=== PATIENT | male | born 1935 | race Caucasian/White ===

== ENCOUNTER 2017-01-28 13:35 | Inpatient (IN) | payer OTHER ==
[~2017-01-28] VITALS: Ht 167.6 cm; Wt 70.3 kg
--- NOTE | ~2017-01-28 | EKG ---
[address] [address] ELECTROCARDIOGRAM REPORT Name: FILOMENA PEREZ Room #: 364-P ADM IN M.R.#: [id number] Admission: 01/28/17 Attend Phys: Andres Liz Discharge: Date of : 31 Report #: [id number] THIS REPORT FOR: //name// [facility] ED Test Date: 2017-01-28 Test Time: 14:22:23 Pat Name: FILOMENA PEREZ Department: Room: 364 Gender: M [employer] H[employer] Instructor: ERASMO : 1935 Requested By: Daniele Peng Order Number: [id number] MD: Aravind Meier Measurements Intervals [place] Rate: 95 P: MT: QRS: 23 QRSD: 141 T: 29 QT: 380 QTc: 478 Interpretive Statements Sinus rhythm with first degree AV block Right bundle branch block Baseline wander in lead(s) II,III,aVF,V1,V2 Electronically Signed On 01-28-2017 20:17:47 AEROLOGIST by Aravind Meier [email or web address] <ELECTRONICALLY SIGNED> By: Aravind Meier MD 01/28/172016 142 142 Aravind Meier MD /MACEY
[2017-01-28 13:35] VITALS: BP 155/81
[~2017-01-28 13:35] MED LIST: ACCUNEB SO1.25 MG/1 INH; ADVAIR 500-501 EACH INH; ADVAIR HFA 230M12 GM INH; AMBIEN 5 MG TABL5 M1 PO; AMITRIPTYLINE H25 M2 PO; AMOXICILLIN 50500 MG PO; AMOXICILLIN500 M1 PO; ASPIRIN EC81 M1 PO; AUGMENTIN 875875 MG PO; CALCIUM 500 +1 EAC5 PO; CARTIA XT300 M1 PO; CENTRUM SILVER1 EAC4 PO; CIPRO500 MG PO; CIPROFLOXACIN500 M3 PO; COZAAR 50 MG TA50 M1; COZAAR 50 MG TA50 M2 PO; COZAAR100 MG PO; DALIRESP500 MCG PO; DEEP SEA NASAL44 M1 NS; DIAZEPAM 2MG TAB2 MG PO; DICLOFENAC SOD50 MG; DILTIAZEM 24HR180 MG PO; DUONEB 2.5-0.5 M3 ML INH; ENDOCET 5-3251 EACH PO; FAMVIR500 MG; FISH OIL 1,0001 EAC5 PO; FISH OIL 1,001000 M2 PO; FUROSEMIDE 40 M40 M1 PO; HYDROCODON-ACE1 EAC7 PO; IPRAT-ALBUT 0.5-3 ML INH; KLOR-CON 1010 MEQ; KLOR-CON 1010 MEQ PO; LAXATIVE PEG 3317 GM PO; LEVAQUIN 500 M500 M4 PO; LEXAPRO 10 MG T10 M1 PO; LEXAPRO 10 MG T10 MG; LIPITOR 40 MG T40 M1 PO; LOVENOX40 MG/0.4 SQ; MUCINEX TA600 MG/TAB PO; NORCO 5-325 TA1 EACH PO; OMEPRAZOLE 20 M20 MG; PERCOCET 7.5-31 EAC1 PO; PREDNISONE 10 M10 M1 PO; PREDNISONE 10 M10 MG; PREDNISONE 10 M10 MG PO; PREDNISONE 20 M20 M1 PO; PREDNISONE 20 M20 MG PO; PRILOSEC20 MG PO; PROAIR HFA8.5 GM INH; PROAIR RESPICL90 MCG IH; PROTONIX40 M1 PO; PROTONIX40 M2 PO; REFRESH CLASSI1 EACH OP; REGLAN 10 MG TA10 MG PO; RESTASIS1 EACH OPHTHALMIC; SIMETHICON CHEW80 M1 PO; SYNTHROID125 MCG PO; TAMSULOSIN HCL0.4 MG PO; TEARS NATURALE1 EACH OPHTHALMIC; TYLENOL325 MG PO; VITAMIN D3400 UNI1 PO; VYTORIN 10-401 EACH PO; XOPENEX 0.63 MG/3 M1 INH; XOPENEX 1.25 MG/3 ML INH; cartia xt
[2017-01-28 14:24] LABS: HEMATOCRIT 41.5 % (42.0-52.0); HEMOGLOBIN 13.9 gm/dL (14.0-18.0); MANUAL DIFF YES; MCH 30.2 pg (26.0-34.0); MCHC 33.5 g/dL (28.0-37.0); MCV 90.2 fL (80.0-100.0); PLATELET COUNT 225 thou/uL (150-400); RDW 14.6 % (10.5-14.5); WBC 10.2 thou/uL (4.0-11.0)
[2017-01-28 14:28] LABS: ANION GAP 8 mmol/L (7-16); BUN 13 mg/dL (7-18); CALCIUM 8.7 mg/dL (8.5-10.1); CHLORIDE 103 mmol/L (98-107); CO2 25 mmol/L (21-32); CREATININE 0.9 mg/dL (0.7-1.3); GLUCOSE 102 mg/dL (74-106); POTASSIUM 4.1 mmol/L (3.5-5.1); SODIUM 136 mmol/L (136-145)
[2017-01-28 14:37] LABS: TROPONIN-I < 0.04 ng/mL (<0.06)
[2017-01-28 14:44] LABS: ABSOLUTE NEUTROPHILS 8.5 thou/uL (1.4-8.2); TOTAL CELL COUNT 100
[2017-01-28 14:45] LABS: PLATELET ESTIMATE NORMAL
[2017-01-28 15:46] LABS: URINE BILIRUBIN NEGATIVE (Negative); URINE BLOOD TRACE (Negative); URINE COLOR YELLOW; URINE GLUCOSE-RANDOM* NEGATIVE (Negative); URINE KETONES NEGATIVE (Negative); URINE LEUKOCYTES-REFLEX NEGATIVE (Negative); URINE PROTEIN (DIPSTICK) NEGATIVE (Negative); URINE SPECIFIC GRAVITY 1.015 (1.003-1.035); URINE UROBILINOGEN 0.2 E.U./dl (0.2-1.0)
[2017-01-28 16:37] VITALS: BP 132/70
[2017-01-28 17:00] VITALS: BP 144/72
[2017-01-28 19:16] VITALS: BP 118/73
[2017-01-29 03:52] VITALS: BP 125/71
[2017-01-29 08:52] VITALS: BP 139/66
[2017-01-29 14:12] VITALS: BP 139/66
[2017-01-29 15:08] VITALS: BP 145/76
[2017-01-29 15:15] VITALS: BP 139/66
[2017-01-29 20:00] VITALS: BP 143/56
[2017-01-30 04:00] VITALS: BP 139/76
[2017-01-30 08:00] VITALS: BP 149/86
[2017-01-30 12:23] VITALS: BP 143/74
[2017-01-30 15:43] VITALS: BP 134/57
[2017-01-30 20:00] VITALS: BP 129/69
[2017-01-31 04:00] VITALS: BP 140/84
[2017-01-31 08:01] VITALS: BP 129/53
[2017-01-31] MEDS ORDERED: PREDNISONE 10 M10 MG PO (09:24)
[2017-01-31] MEDS ORDERED: LEVAQUIN 750 M750 MG PO (09:25)
[2017-01-31 09:36] VITALS: BP 139/66
[2017-01-31 10:10] VITALS: BP 139/66
[2017-01-31 10:47] VITALS: BP 139/66
== END 2017-01-31 10:55 | disposition home health service (06) | DRG 871 ==
LOC: ER 13:35 → 3W 16:27 → EROBS 16:27 → 3W 17:36 → ENTRNSPT 01-31 10:39 → 3W 01-31 10:55
PROVIDERS: Emergency Medicine
DX: A41.9 Sepsis, unspecified organism (principal); J18.9 Pneumonia, unspecified organism; E43 Unspecified severe protein-calorie malnutrition; J44.0 Chronic obstructive pulmonary disease with (acute) lower respiratory infection; J44.1 Chronic obstructive pulmonary disease with (acute) exacerbation; J20.9 Acute bronchitis, unspecified; I10 Essential (primary) hypertension; Z88.1 Allergy status to other antibiotic agents; Z88.2 Allergy status to sulfonamides; Z87.891 Personal history of nicotine dependence
CPT/HCPCS: 10080

== ENCOUNTER 2017-02-15 11:29 | Inpatient (IN) | payer OTHER ==
[~2017-02-15] VITALS: Ht 160 cm; Wt 72.6 kg
--- NOTE | ~2017-02-15 | EKG ---
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 02/15/17 1559 1219 1219 Dre Martínez MD, FAC /EPI
[~2017-02-15 11:29] MED LIST changes: +LEVAQUIN 750 M750 MG PO
[2017-02-15 11:30] VITALS: BP 145/80
[2017-02-15 12:45] LABS: ABG SAMPLE TYPE ARTERIAL; HCO3 23.3 mmol/L (22.0-26.0); LACTATE 1.39 mmol/L (0.5-2.0); O2(CT) 20.7 mL/dL (15.0-23.0); O2Hb 92.1 % (92.0-98.0); PCO2 28.1 mmHg (35.0-45.0); PO2 61.8 mmHg (80.0-100.0); pH 7.536 (7.360-7.450); sO2 94.4 % (92.0-98.0); tCO2 24.1 mmol/L (24.0-30.0)
[2017-02-15 12:46] LABS: STICK SITE R.RADIAL
[2017-02-15 12:57] LABS: ABSOLUTE NEUTROPHILS 15.5 thou/uL (1.4-8.2); BASOPHILS 0.2 % (0.0-2.0); EOSINOPHILS 0.5 % (0.0-3.0); HEMATOCRIT 46.8 % (42.0-52.0); HEMOGLOBIN 15.6 gm/dL (14.0-18.0); LYMPHOCYTES 7.3 % (24.0-44.0); MCH 30.4 pg (26.0-34.0); MCHC 33.3 g/dL (28.0-37.0); MCV 91.3 fL (80.0-100.0); MONOCYTES 5.6 % (1.0-8.0); PLATELET COUNT 304 thou/uL (150-400); POLYS 86.4 % (36.0-66.0); RBC 5.13 mil/uL (4.50-6.00); RDW 15.1 % (10.5-14.5)
[2017-02-15 12:59] LABS: MANUAL DIFF NO
[2017-02-15 13:09] LABS: ANION GAP 8 mmol/L (7-16); BUN 23 mg/dL (7-18); CALCIUM 8.7 mg/dL (8.5-10.1); CHLORIDE 104 mmol/L (98-107); CO2 27 mmol/L (21-32); GLUCOSE 103 mg/dL (74-106); POTASSIUM 4.2 mmol/L (3.5-5.1); SODIUM 139 mmol/L (136-145)
[2017-02-15 13:18] LABS: ALBUMIN 2.6 g/dL (3.4-5.0); ALKALINE PHOSPHATASE 87 U/L (46-116); SGOT 20 U/L (15-37); SGPT 25 U/L (30-65); TOTAL BILIRUBIN 0.9 mg/dL (<0.1-1.0); TOTAL PROTEIN 6.6 g/dL (6.4-8.2); TROPONIN-I < 0.04 ng/mL (<0.06)
[2017-02-15 13:48] VITALS: BP 145/80
[2017-02-15 14:30] VITALS: BP 125/73
[2017-02-15 19:58] VITALS: BP 103/60
[2017-02-16 00:15] VITALS: BP 147/81
[2017-02-16 03:52] VITALS: BP 127/71
[2017-02-16 06:57] LABS: ALBUMIN 2.3 g/dL (3.4-5.0); CALCIUM 8.2 mg/dL (8.5-10.1); CREATININE 0.7 mg/dL (0.7-1.3); PHOSPHORUS 3.7 mg/dL (2.5-4.9); POTASSIUM 4.7 mmol/L (3.5-5.1)
[2017-02-16 07:35] LABS: HEMATOCRIT 41.8 % (42.0-52.0); HEMOGLOBIN 14.1 gm/dL (14.0-18.0); MCH 30.6 pg (26.0-34.0); MCHC 33.8 g/dL (28.0-37.0); MCV 90.6 fL (80.0-100.0); RBC 4.61 mil/uL (4.50-6.00); RDW 14.6 % (10.5-14.5); WBC 8.7 thou/uL (4.0-11.0)
[2017-02-16 08:00] VITALS: BP 162/125
[2017-02-16 16:00] VITALS: BP 109/56
[2017-02-16 21:00] VITALS: BP 107/60
[2017-02-17 04:30] VITALS: BP 121/74
[2017-02-17 08:16] VITALS: BP 134/82
[2017-02-17 16:00] VITALS: BP 137/80
[2017-02-17 20:13] VITALS: BP 127/65
[2017-02-18 03:46] VITALS: BP 138/84
[2017-02-18 08:00] VITALS: BP 149/70
[2017-02-18 16:00] VITALS: BP 184/94
[2017-02-18 20:00] VITALS: BP 175/88
[2017-02-18 20:25] VITALS: BP 175/88
[2017-02-19 04:06] VITALS: BP 178/86
[2017-02-19 04:16] VITALS: BP 133/74
[2017-02-19 08:00] VITALS: BP 125/78
[2017-02-19] MEDS ORDERED: CEFUROXIME500 MG PO (09:59)
[2017-02-19] MEDS ORDERED: PREDNISONE 10 M10 MG PO (10:02)
[2017-02-19 20:12] VITALS: BP 137/72
[2017-02-20 03:54] VITALS: BP 128/81
[2017-02-20 08:40] VITALS: BP 122/73
== END 2017-02-20 15:35 | DRG 177 ==
LOC: ER 11:29 → EROBS 13:14 → 4E 13:14
PROVIDERS: Hospitalist; Physician Assistant
DX: J69.0 Pneumonitis due to inhalation of food and vomit (principal); G93.40 Encephalopathy, unspecified; J96.91 Respiratory failure, unspecified with hypoxia; J44.1 Chronic obstructive pulmonary disease with (acute) exacerbation; R13.10 Dysphagia, unspecified; F32.9 Major depressive disorder, single episode, unspecified; J15.9 Unspecified bacterial pneumonia; Y95 Nosocomial condition; Z87.891 Personal history of nicotine dependence; Z88.1 Allergy status to other antibiotic agents; Z88.2 Allergy status to sulfonamides; Z90.49 Acquired absence of other specified parts of digestive tract; Z79.82 Long term (current) use of aspirin; Z79.899 Other long term (current) drug therapy; Z99.81 Dependence on supplemental oxygen
CPT/HCPCS: 10183

== ENCOUNTER 2017-03-01 11:00 | Inpatient (IN) | payer OTHER ==
[~2017-03-01] VITALS: Ht 167.6 cm; Wt 73.4 kg
--- NOTE | ~2017-03-01 | HC ---
[facility] [place] [address] CONSULTATION Name: FILOMENA PEREZ Room #: 204-P [facility] IN M.R.#: [id number] Admission: 03/01/17 Attend Phys: Wilman Fischer MD Discharge: 03/07/17 Date of : 31 Report #: [id number] THIS REPORT FOR: //name// CC: Wilman Dias [facility] [place] DATE OF SERVICE: 03/05/2017 HISTORY OF PRESENT ILLNESS: The patient is an 82-year-old white male who was admitted with shortness of breath, noted to have pneumonia with COPD exacerbation. He is being followed by Pulmonary Medicine with a diagnosis of recurrent pneumonia. He has had acute on chronic hypoxic respiratory failure. Speech therapy is involved and he is on nectar thickened liquids with mechanical soft with his dysphagia. We are seeing him in rehabilitation medicine consultation. PAST MEDICAL HISTORY: Asthma, cholecystectomy, O2 dependent on 2 liters nasal prong premorbidly. PAST SURGICAL HISTORY: As noted above. MEDICATIONS: Please see the full medication listing. ALLERGIES: SULFA, AMOXICILLIN. SOCIAL HISTORY: He has been living in his own independent living apartment using a cane on occasion on 2 liters nasal prong O2. He recently moved into an assisted living facility for a short time and then ended up being readmitted back to the hospital. REVIEW OF SYSTEMS: No current complaints of chest pain, shortness of breath, abdominal discomfort. Denied any focal extremity pain complaints. Did not offer any complaints of headache or shortness of breath or bowel or bladder changes. PHYSICAL EXAMINATION: GENERAL: An 82-year-old white male in no obvious distress. He is alert. VITAL SIGNS: Last recorded temperature is 97.7, pulse 86, respirations 18, blood pressure 130/58. HEENT: Appeared to be benign. NEUROLOGIC: Cranial nerves are grossly intact. Facies are symmetric. He has nasal prong O2 in place. Functional range of motion of both upper extremities with strength grade 4-/5 to 4/5. DTRs are trace to 1. Lower extremities, no focal calf swelling; functional range of motion with strength grade 4 to 4-/5. DTRs are trace to 1. He is mid assist with cyq-sv-[id number] transfers and is ambulating 120 feet min assist with a cane. He is on 4 liters nasal prong O2. [address] [address] CONSULTATION Name: FILOMENA PEREZ Room #: 204-P [facility] IN [facility].#: [id number] Admission: 03/01/17 Attend Phys: Wilman Fischer MD Discharge: 03/07/17 Date of : 31 Report #: [id number] ASSESSMENT: An 82-year-old white male with the following problem list: 1. Pulmonary rehabilitation. 2. Recurrent pneumonia. 3. Acute on chronic hypoxemic respiratory failure. 4. Chronic obstructive pulmonary disease with exacerbation. 5. Dysphagia, currently on nectar thickened liquids. PLAN: Therapy evaluations are continuing. Insurance will need to be checked regarding rehab therapy options. Thank you for asking us to assist in this patient's care. <ELECTRONICALLY SIGNED> By: Malcolm Musa MD 03/10/17 1509 1151 2134 Malcolm Musa MD /[facility]
--- NOTE | ~2017-03-01 | EKG ---
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: Bella HOPKINS : 1935 Requested By: Wilman Fischer Order Number: [id number] MD: Dre Martínez Measurements Intervals [place] Rate: 129 P: -23 [place]: 138 QRS: 31 QRSD: 120 T: 54 QT: 327 QTc: 480 Interpretive Statements Sinus tachycardia Right bundle branch block Baseline wander in lead(s) V6 Compared to ECG 02/15/2017 12:19:28 no significant change was found Electronically Signed On 03-02-2017 14:20:09 MECHANICAL PROJECT MANAGER by Dre Martínez [email or web address] <ELECTRONICALLY SIGNED> By: Dre Martínez MD, [facility] 03/02/17 1420 111 13 Dre Martínez MD, [facility] /EPI
--- NOTE | ~2017-03-01 | EKG ---
[address] [place] [address] ELECTROCARDIOGRAM REPORT Name: FILOMENA PEREZ Room #: 204-P ADM IN M.R.#: [id number] Admission: 03/01/17 Attend Phys: Wilman Fischer MD Discharge: Date of : 31 Report #: [id number] THIS REPORT FOR: //name// [facility] ED Test Date: 2017-03-01 Test Time: 11:07:09 Pat Name: FILOMENA PEREZ Department: Room: [facility] Gender: Shanker Out: Bella HOPKINS : 1935 Requested By: Jerry Schulte Order Number: [id number] MD: Dre Martínez Measurements Intervals [place] Rate: 118 P: 51 ME: 168 QRS: 37 QRSD: 123 T: 29 QT: 304 QTc: 427 Interpretive Statements Sinus tachycardia Left atrial enlargement Right bundle branch block Baseline wander in lead(s) V3,V4,V5,V6 Compared to ECG 02/15/2017 12:19:28 No significant change was found Electronically Signed On 03-02-2017 14:19:24 ELECTRICAL LINEWORKER by Dre Martínez [email or web address] <ELECTRONICALLY SIGNED> By: Dre Martínez MD, FAC 03/02/17 1419 1107 1107 Dre Martínez MD, [facility] /EPI
--- NOTE | ~2017-03-01 | HC ---
[facility] [place] [address] CONSULTATION Name: FILOMENA PEREZ Room #: 204-P [facility] IN M.R.#: [id number] Admission: 03/01/17 Attend Phys: Wilman Fischer MD Discharge: 03/07/17 Date of : 31 Report #: [id number] THIS REPORT FOR: //name// [facility] DATE OF SERVICE: 03/01/2017 PULMONARY CONSULTATION REFERRING PROVIDER: Wilman Fischer MD REASON FOR CONSULTATION: Pneumonia and respiratory failure. HISTORY OF PRESENT ILLNESS: Our group was asked to see the patient in consultation while hospitalized at [facility], a pleasant 82-year-old male with a past pulmonary history significant for underlying COPD with asthmatic component and bronchiectasis, fact was just recently hospitalized less than 2 weeks ago for similar complaints. The patient was discharged and subsequently re-presented to the Emergency Department with increasing shortness of breath, has had some cough and difficulty clearing sputum, also may be having some fever at home at 101.3. He is chronically on supplemental oxygen at home at 2 liters nasal cannula. Denies any muscular pain, chills or sweats. No hemoptysis. On presenting to the Emergency Room, was found to be in respiratory distress, placed on BiPAP without difficulty getting good oxygenation. Chest x-ray revealed diffuse infiltrates being somewhat more prominent than most recent x-ray. ALLERGIES: INCLUDE SULFA AND AMOXICILLIN. PAST MEDICAL HISTORY: 1. Bronchiectasis. 2. COPD. 3. Chronic hypoxemic respiratory failure. 4. Esophageal reflux. 5. Probable depression. OUTPATIENT MEDICATIONS: Include: 1. Advair 230/21 two puffs twice daily. 2. Restasis eyedrops. 3. Lipitor. 4. DuoNeb. 5. Daliresp 500 mcg daily. 6. Aspirin 81 mg daily. 7. Lexapro 10 mg daily. 8. Protonix [address] [facility] [address] [place] [address] CONSULTATION Name: FILOMENA PEREZ Room #: 204-P [facility] IN [facility].#: [id number] Admission: 03/01/17 Attend Phys: Wilman Fischer MD Discharge: 03/07/17 Date of : 31 Report #: [id number] 9. Reglan 5 mg q.a.c. and at bedtime. 10. Albuterol inhaler. 11. Levalbuterol nebulized treatments. 12. Amitriptyline 25 mg daily. 13. [place] p.r.n. 14. Synthroid 0.125 daily. SOCIAL HISTORY: Never smoker, no alcohol consumption. FAMILY HISTORY: Noncontributory due to advanced age. REVIEW OF SYSTEMS: Difficult to obtain due to some mild altered mental status, but is reasonably reliable. CONSTITUTIONAL: No fevers, no chills or rigors. ENT: No upper respiratory congestion or dysphagia. GASTROINTESTINAL: No nausea, vomiting, abdominal pain or diarrhea. GENITOURINARY: No dysuria, no frequency, no hematuria. INTEGUMENT: Denies any rash. MUSCULOSKELETAL: Generalized weakness. No joint pains or swelling. PHYSICAL EXAMINATION: VITAL SIGNS: Temperature 37.0, pulse 70s, respiratory rate 16, blood pressure 115/64. GENERAL: This is a pleasant elderly male, resting comfortably in bed, in no distress, on nasal cannula O2. HEENT: Clear oropharynx. No thrush. NECK: Supple, no lymphadenopathy. LUNGS: Diffuse inspiratory crackles, occasional wheezes. CARDIOVASCULAR: Heart is regular. No murmurs noted. ABDOMEN: Soft, nontender, no masses. EXTREMITIES: Warm, 2+ pulses, no edema. INTEGUMENT: No rash noted. LABORATORY DATA: White blood cell count 12,000; hemoglobin 13; hematocrit 38; platelet count of 321. Chemistry profile within normal limits. ProBNP slightly elevated at 1564. Initial arterial blood gas on BiPAP of 16/6, respiratory rate of 10, at 100% FiO2 revealed pH 7.46, pCO2 of 31, pO2 of 498 and bicarb 21. IMPRESSION: 1. Diffuse pulmonary infiltrates failing recent outpatient management. 2. Chronic obstructive pulmonary disease with acute exacerbation. 3. Underlying bronchiectasis. 4. Acute on chronic hypoxemic respiratory failure. SUGGESTIONS: 1. Continue his steroids with taper. [address] [address] CONSULTATION Name: FILOMENA PEREZ Room #: 204-P [facility] IN M.R.#: [id number] Admission: 03/01/17 Attend Phys: Wilman Fischer MD Discharge: 03/07/17 Date of : 31 Report #: [id number] 2. Broaden antibiotics while awaiting cultures given recent antibiotics and failure of treatment. 3. Influenza screen. Respiratory viral panel. Sputum and blood cultures. 4. Follow up chest radiograph. 5. Frequent bronchodilators. We would be concerned about the patient's decompensating mental status while on Levaquin and systemic steroids as he has been intolerant to some of these medications in the past and when in combination, we will have to observe carefully and de-escalate antibiotics as soon as able. Discussed at length with the patient. <ELECTRONICALLY SIGNED> By: Ernesto Weller MD 03/07/17 1726 1659 0519 Ernesto Weller MD /nt
[~2017-03-01 11:00] MED LIST changes: +CEFUROXIME500 MG PO
[2017-03-01 11:01] VITALS: BP 118/72
[2017-03-01 11:29] LABS: HEMATOCRIT 41.5 % (42.0-52.0); HEMOGLOBIN 13.9 gm/dL (14.0-18.0); MCH 30.4 pg (26.0-34.0); MCHC 33.6 g/dL (28.0-37.0); MCV 90.6 fL (80.0-100.0); PLATELET COUNT 321 thou/uL (150-400); RBC 4.58 mil/uL (4.50-6.00); RDW 14.4 % (10.5-14.5); WBC 15.3 thou/uL (4.0-11.0)
[2017-03-01 11:33] LABS: ANION GAP 9 mmol/L (7-16); BUN 10 mg/dL (7-18); CALCIUM 8.7 mg/dL (8.5-10.1); CHLORIDE 104 mmol/L (98-107); CO2 24 mmol/L (21-32); CREATININE 0.8 mg/dL (0.7-1.3); GLUCOSE 115 mg/dL (74-106); SODIUM 137 mmol/L (136-145)
[2017-03-01 11:42] LABS: TROPONIN-I < 0.04 ng/mL (<0.06)
[2017-03-01 12:12] LABS: BE(vivo) -1.5 mmol/L (-2 to +3); HCO3 21.4 mmol/L (22.0-26.0); PCO2 31.1 mmHg (35.0-45.0); PO2 497.5 mmHg (80.0-100.0); pH 7.456 (7.360-7.450); sO2 99.9 % (92.0-98.0)
[2017-03-01 12:20] LABS: ABSOLUTE NEUTROPHILS 12.1 thou/uL (1.4-8.2); ANISOCYTOSIS SLIGHT; ATYPICAL LYMPHS 1 %; METAMYELOCYTES 1 %
[2017-03-01 15:42] VITALS: BP 113/54
[2017-03-01 16:55] LABS: HEMATOCRIT 38.1 % (42.0-52.0); HEMOGLOBIN 12.8 gm/dL (14.0-18.0); MCH 30.5 pg (26.0-34.0); MCHC 33.5 g/dL (28.0-37.0); MCV 91.1 fL (80.0-100.0); RBC 4.19 mil/uL (4.50-6.00); RDW 14.3 % (10.5-14.5); WBC 12.2 thou/uL (4.0-11.0)
[2017-03-01 17:00] LABS: CREATININE 0.8 mg/dL (0.7-1.3); POTASSIUM 3.9 mmol/L (3.5-5.1)
[2017-03-01 17:35] LABS: ABSOLUTE NEUTROPHILS 11.6 thou/uL (1.4-8.2)
[2017-03-01 18:16] LABS: PLATELET COUNT 237 thou/uL (150-400)
[2017-03-01 19:35] VITALS: BP 122/56
[2017-03-02 04:00] VITALS: BP 125/64
[2017-03-02 08:35] VITALS: BP 122/65
[2017-03-02 13:25] VITALS: BP 115/67
[2017-03-02 19:28] VITALS: BP 116/59
[2017-03-03 03:19] LABS: HEMATOCRIT 35.7 % (42.0-52.0); MCH 30.5 pg (26.0-34.0); MCHC 33.6 g/dL (28.0-37.0); MCV 90.7 fL (80.0-100.0); PLATELET COUNT 284 thou/uL (150-400); RBC 3.93 mil/uL (4.50-6.00); RDW 13.8 % (10.5-14.5); WBC 11.2 thou/uL (4.0-11.0)
[2017-03-03 03:28] LABS: CALCIUM 8.2 mg/dL (8.5-10.1); CREATININE 0.8 mg/dL (0.7-1.3); POTASSIUM 3.9 mmol/L (3.5-5.1)
[2017-03-03 03:51] VITALS: BP 162/80
[2017-03-03 05:00] LABS: ABSOLUTE NEUTROPHILS 10.9 thou/uL (1.4-8.2); METAMYELOCYTES 1 %
[2017-03-03 07:40] VITALS: BP 152/75
[2017-03-03 11:20] VITALS: BP 144/72
[2017-03-03 15:30] VITALS: BP 133/74
[2017-03-03 19:18] VITALS: BP 136/74
[2017-03-04 03:44] VITALS: BP 152/80
[2017-03-04 04:18] LABS: HEMATOCRIT 37.9 % (42.0-52.0); HEMOGLOBIN 12.9 gm/dL (14.0-18.0); MCH 30.8 pg (26.0-34.0); MCHC 34.1 g/dL (28.0-37.0); MCV 90.2 fL (80.0-100.0); PLATELET COUNT 314 thou/uL (150-400); RDW 13.8 % (10.5-14.5)
[2017-03-04 04:23] LABS: CALCIUM 8.6 mg/dL (8.5-10.1); CREATININE 0.8 mg/dL (0.7-1.3); POTASSIUM 3.8 mmol/L (3.5-5.1)
[2017-03-04 07:37] LABS: ABSOLUTE NEUTROPHILS 9.5 thou/uL (1.4-8.2)
[2017-03-04 11:20] VITALS: BP 126/53
[2017-03-04 15:58] VITALS: BP 145/72
[2017-03-04 19:19] VITALS: BP 150/85
[2017-03-04 23:06] LABS: ADENOVIRUS Negative (Negative); INFLUENZA A Negative (Negative); INFLUENZA B Negative (Negative); METAPNEUMOVIRUS Negative (Negative); PARAINFLUENZA 1 Negative (Negative); PARAINFLUENZA 2 Negative (Negative); PARAINFLUENZA 3 Negative (Negative); RHINOVIRUS Negative (Negative); RSV A Negative (Negative); RSV B Negative (Negative)
[2017-03-05 03:16] LABS: HEMATOCRIT 37.5 % (42.0-52.0); HEMOGLOBIN 12.5 gm/dL (14.0-18.0); MCH 30.1 pg (26.0-34.0); MCHC 33.3 g/dL (28.0-37.0); MCV 90.6 fL (80.0-100.0); RBC 4.14 mil/uL (4.50-6.00); RDW 14.1 % (10.5-14.5); WBC 10.8 thou/uL (4.0-11.0)
[2017-03-05 03:29] LABS: CALCIUM 8.5 mg/dL (8.5-10.1); CREATININE 0.8 mg/dL (0.7-1.3); POTASSIUM 3.6 mmol/L (3.5-5.1)
[2017-03-05 03:46] VITALS: BP 120/60
[2017-03-05 07:47] VITALS: BP 144/71
[2017-03-05 11:25] VITALS: BP 130/58
[2017-03-05 15:36] VITALS: BP 134/85
[2017-03-05 17:14] VITALS: BP 135/77
[2017-03-05 19:38] VITALS: BP 122/65
[2017-03-06 04:20] VITALS: BP 142/80
[2017-03-06 07:25] VITALS: BP 134/76
[2017-03-06 11:33] VITALS: BP 133/76
[2017-03-06 15:33] VITALS: BP 128/68
[2017-03-06 20:27] VITALS: BP 149/84
[2017-03-07 04:21] VITALS: BP 159/86
[2017-03-07 07:49] VITALS: BP 169/98
[2017-03-07 12:00] VITALS: BP 132/82
[2017-03-07] MEDS ORDERED: DOXYCYCLINE HYC50 MG PO (15:24)
== END 2017-03-07 16:27 | DRG 871 ==
LOC: ER 11:00 → 2N 12:40 → EROBS 12:40 → 2N 15:02
PROVIDERS: Hospitalist; Internal Medicine Endocrinology, Diabetes & Metabolism; Internal Medicine Pulmonary Disease; Physician Assistant
DX: A41.9 Sepsis, unspecified organism (principal); J69.0 Pneumonitis due to inhalation of food and vomit; J96.21 Acute and chronic respiratory failure with hypoxia; J44.1 Chronic obstructive pulmonary disease with (acute) exacerbation; K21.9 Gastro-esophageal reflux disease without esophagitis; R13.10 Dysphagia, unspecified; E03.9 Hypothyroidism, unspecified; E78.5 Hyperlipidemia, unspecified; Z90.49 Acquired absence of other specified parts of digestive tract; Z79.82 Long term (current) use of aspirin; Z88.1 Allergy status to other antibiotic agents; Z88.2 Allergy status to sulfonamides; Z79.899 Other long term (current) drug therapy
CPT/HCPCS: 10081